=== PATIENT | male | born 2000 | race Hispanic/Latino ===

== ENCOUNTER 2021-11-15 19:00 | Emergency (ER) | payer OTHER ==
[~2021-11-15] VITALS: Ht 160 cm; Wt 86.2 kg
[2021-11-15 19:57] LABS: BASOPHILS % (AUTO) 0.2 % (0.0-5.0); EOSINOPHILS % (AUTO) 0.2 % (0.0-8.0); HEMATOCRIT 45.3 % (42-54); LYMPHOCYTES % (AUTO) 20.6 % (21.0-51.0); MEAN CORPUSCULAR HGB CONC 34.2 g/dL (32.0-36.0); MEAN CORPUSCULAR VOLUME 81.9 fL (80-100); MONOCYTES % (AUTO) 5.9 % (3.0-13.0); NEUTROPHILS % (AUTO) 72.8 % (40.0-77.0); PLATELET COUNT (AUTO) 336 K/uL (130-400); RED BLOOD CELL COUNT(AUTO) 5.53 MIL/uL (4.50-6.20); RED CELL DISTRIBUTION WIDTH 12.2 % (11.0-15.5); WHITE BLOOD COUNT (AUTO) 12.5 K/uL (4.8-10.8)
[2021-11-15 20:02] LABS: CREATININE 0.9 mg/dL (0.5-1.5); POTASSIUM 3.7 mmol/L (3.5-5.1)
[2021-11-15 20:11] LABS: ALBUMIN 4.5 g/dL (3.5-5.0); TOTAL PROTEIN, SERUM 8.7 g/dL (6.0-8.3)
[2021-11-15] MEDS ORDERED: CYCL10TA16 PO (20:18)
[2021-11-15] MEDS: IBUPROFEN 600 MG TABLET PO ONE (20:41)
[2021-11-15] MEDS: CYCLOBENZAPRINE HCL 10 MG TABLET PO ONE (20:41)
[2021-11-15 20:44] VITALS: BP 137/84
== END 2021-11-15 20:45 | disposition home or self-care (01) ==
LOC: EDH 19:00
DX: F43.9 Reaction to severe stress, unspecified (principal); F41.9 Anxiety disorder, unspecified; R07.89 Other chest pain; M54.2 Cervicalgia
CPT/HCPCS: 36415; 80053; 84484; 85025; 93005